=== PATIENT | female | born 1960 | race Two or more races ===

== ENCOUNTER 2025-01-24 11:30 | Inpatient (IN) | payer OTHER ==
[~2025-01-24] VITALS: Ht 172.7 cm; Wt 80.7 kg
[2025-01-24] MEDS ORDERED: ESTAZOLAM2 MG PO (12:34)
[2025-01-24] MEDS ORDERED: CLONAZEPAM2 M1 PO (12:34)
[2025-01-24] MEDS ORDERED: PROTONIX40 MG PO (12:35)
[2025-01-24] MEDS ORDERED: BELBUCA150 MCG BC (12:35)
[2025-01-24] MEDS ORDERED: ZOLOFT100 MG PO (12:35)
[2025-01-24] MEDS ORDERED: IBANDRONATE SO150 MG PO (12:36)
[2025-01-31] MEDS ORDERED: METRONIDAZOLE/SODIUM CHLORIDE 500 MG/100 ML PIGGYBACK IV ONE (12:08)
[2025-01-31] MEDS ORDERED: CEFTRIAXONE SODIUM 2,000 MG VIAL ONE (12:08)
[2025-01-31] MEDS ORDERED: BUPIVACAINE HCL/MPF 0.5% 30ML VIAL ONE (13:36)
[2025-01-31] MEDS ORDERED: CHLORHEXIDINE GLUCONATE 120 ML BOTTLE TOP ONE (14:29)
[2025-01-31] MEDS ORDERED: LIDOCAINE HCL 1%/EPINEPHRINE 20ML VIAL IJ ONE (14:37)
[2025-01-31] MEDS ORDERED: SUGAMMADEX SODIUM 200 MG/2 ML VIAL IV ONE (17:07)
[2025-01-31] MEDS ORDERED: RINGERS SOLUTION,LACTATED 1,000 ML IV SCH (17:45)
[2025-01-31] MEDS ORDERED: ONDANSETRON HCL 2 MG/ML VIAL IV PRN (17:45)
[2025-01-31] MEDS ORDERED: MORPHINE SULFATE 4 MG/ML CARTRIDGE IV PRN (17:45)
[2025-01-31] MEDS ORDERED: MORPHINE SULFATE 4 MG/ML VIAL IV ONE ×2 (20:25→21:00)
[2025-01-31] MEDS ORDERED: FAMOTIDINE/PF 20 MG/2 ML VIAL IV PUSH SCH (21:00)
[2025-01-31] MEDS ORDERED: FAMOTIDINE/PF 20 MG/2 ML VIAL ONE (21:04)
[2025-01-31 21:53] VITALS: BP 117/72; O2SAT 95
[2025-01-31 23:21] LABS: HEMATOCRIT 41.2 % (36.0-45.00); HEMOGLOBIN 13.5 g/dL (12.0-15.00); MEAN CELL VOLUME 83.7 fL (80.00-100.00); MEAN CORPUSCULAR HEMOGLOBIN 27.4 pg (27.00-32.0); MEAN CORPUSCULAR HGB CONC 32.7 g/dl (32.0-36.0); PLATELET COUNT 357 K/uL (150-450); RED BLOOD COUNT 4.93 M/uL (4.00-6.00); RED CELL DISTRIBUTION WIDTH 15.4 % (11.5-14.5)
[2025-02-01 00:49] VITALS: BP 118/80; O2SAT 95
[2025-02-01] MEDS ORDERED: METOCLOPRAMIDE HCL 5 MG/ML VIAL IV SCH (01:00)
[2025-02-01 07:17] LABS: ALBUMIN 2.6 gm/dL (3.4-5.0); CALCIUM 8.1 mg/dL (8.5-10.1); CREATININE SERUM 0.64 mg/dL (0.55-1.02); GFR 93.42; PHOSPHOROUS 3.3 mg/dL (2.5-4.9)
[2025-02-01 07:23] LABS: MAGNESIUM 1.4 mg/dL (1.8-2.4); POTASSIUM 4.98 mEq/L (3.5-5.1)
[2025-02-01 08:34] LABS: HEMATOCRIT 40.4 % (36.0-45.00); MEAN CORPUSCULAR HEMOGLOBIN 27.3 pg (27.00-32.0); MEAN CORPUSCULAR HGB CONC 32.2 g/dl (32.0-36.0); PLATELET COUNT 326 K/uL (150-450); RED BLOOD COUNT 4.75 M/uL (4.00-6.00); RED CELL DISTRIBUTION WIDTH 15.2 % (11.5-14.5)
[2025-02-01 08:58] VITALS: BP 126/80; O2SAT 94; O2SAT 95
[2025-02-01] MEDS ORDERED: BUPROPION HCL 150 MG TABLET.SA PO SCH (09:00)
[2025-02-01] MEDS ORDERED: SERTRALINE HCL 100 MG TABLET PO SCH (09:00)
[2025-02-01] MEDS ORDERED: MAGNESIUM SULFATE IN WATER 50 ML IV NR (10:00)
[2025-02-01] MEDS ORDERED: PIPERACILLIN/TAZOBACTAM SODIUM 3.375 GM in 0.9 % SODIUM CHLORIDE 100 ML IV NR (10:00)
[2025-02-01] MEDS ORDERED: PIPERACILLIN/TAZOBACTAM SODIUM 3.375 GM in 0.9 % SODIUM CHLORIDE 100 ML IV SCH (14:00)
[2025-02-01 16:11] VITALS: BP 122/78; O2SAT 93
[2025-02-01] MEDS ORDERED: AMINO ACIDS 4.25 %/DEXTROSE 5% 1,000 ML PERIFERAL SCH (17:00)
[2025-02-01] MEDS ORDERED: AA 5 % NO.6/DEXTROSE 15 % 2,000 ML CENTRAL SCH (17:00)
[2025-02-01] MEDS ORDERED: ENOXAPARIN SODIUM 40 MG/0.4 ML SYRINGE SUBCUTANEO SCH (17:00)
[2025-02-01] MEDS ORDERED: CLONAZEPAM 1 MG TABLET PO SCH (21:00)
[2025-02-01] MEDS ORDERED: ESTAZOLAM 2 MG PO SCH (21:00)
[2025-02-02] VITALS: BP 123/74; O2SAT 97
[2025-02-02 07:52] LABS: CREATININE SERUM 0.53 mg/dL (0.55-1.02); GFR 116.14; MAGNESIUM 2.1 mg/dL (1.8-2.4); POTASSIUM 3.85 mEq/L (3.5-5.1)
[2025-02-02 08:00] VITALS: BP 126/79; O2SAT 98
[2025-02-02 08:00] LABS: PHOSPHOROUS 1.5 mg/dL (2.5-4.9)
[2025-02-02] MEDS ORDERED: ENOXAPARIN SODIUM 40 MG/0.4 ML SYRINGE SUBCUTANEO SCH (09:00)
[2025-02-02] MEDS ORDERED: POTASSIUM PHOS,M-BASIC-D-BASIC 15 MM in 0.9 % SODIUM CHLORIDE 250 ML IV NR (10:00)
[2025-02-02] MEDS ORDERED: ORPHENADRINE CITRATE 30 MG/ML AMPUL IM STA (10:32)
[2025-02-02 15:22] LABS: HEMATOCRIT 34.9 % (36.0-45.00); HEMOGLOBIN 11.2 g/dL (12.0-15.00); MEAN CELL VOLUME 85.3 fL (80.00-100.00); MEAN CORPUSCULAR HEMOGLOBIN 27.4 pg (27.00-32.0); MEAN CORPUSCULAR HGB CONC 32.2 g/dl (32.0-36.0); PLATELET COUNT 246 K/uL (150-450); RED BLOOD COUNT 4.09 M/uL (4.00-6.00); RED CELL DISTRIBUTION WIDTH 15.5 % (11.5-14.5)
[2025-02-02 15:23] VITALS: BP 123/65; O2SAT 98
[2025-02-02] MEDS ORDERED: ORPHENADRINE CITRATE 30 MG/ML AMPUL IM SCH (21:00)
[2025-02-02 23:16] VITALS: BP 139/81; O2SAT 98
[2025-02-03 07:25] VITALS: BP 131/79; O2SAT 98
[2025-02-03 15:30] VITALS: BP 114/74; O2SAT 95
[2025-02-03 23:57] VITALS: BP 139/84; O2SAT 97
[2025-02-04 08:08] VITALS: BP 108/68; O2SAT 95
[2025-02-04 08:21] LABS: ALBUMIN 2.1 gm/dL (3.4-5.0); CALCIUM 8.2 mg/dL (8.5-10.1); CREATININE SERUM 0.44 mg/dL (0.55-1.02); GFR 143.96; MAGNESIUM 1.6 mg/dL (1.8-2.4); POTASSIUM 3.61 mEq/L (3.5-5.1)
[2025-02-04 08:22] LABS: HEMATOCRIT 29.1 % (36.0-45.00); HEMOGLOBIN 9.4 g/dL (12.0-15.00); MEAN CORPUSCULAR HEMOGLOBIN 27.4 pg (27.00-32.0); MEAN CORPUSCULAR HGB CONC 32.2 g/dl (32.0-36.0); PLATELET COUNT 235 K/uL (150-450); RED BLOOD COUNT 3.42 M/uL (4.00-6.00); RED CELL DISTRIBUTION WIDTH 15.2 % (11.5-14.5)
[2025-02-04 08:50] LABS: PHOSPHOROUS 1.5 mg/dL (2.5-4.9)
[2025-02-04 16:00] VITALS: BP 132/79; O2SAT 95
[2025-02-04] MEDS ORDERED: MAGNESIUM SULFATE IN WATER 4 GM/100 ML PIGGYBACK IV NR (16:00)
[2025-02-04] MEDS ORDERED: POTASSIUM PHOS,M-BASIC-D-BASIC 3 MM/ML VIAL IV ONE (18:00)
[2025-02-05 00:29] VITALS: BP 127/80; O2SAT 100
[2025-02-05 06:52] LABS: INR 1.01
[2025-02-05 06:53] LABS: HEMATOCRIT 30.7 % (36.0-45.00); HEMOGLOBIN 10.2 g/dL (12.0-15.00); MEAN CELL VOLUME 83.6 fL (80.00-100.00); MEAN CORPUSCULAR HEMOGLOBIN 27.7 pg (27.00-32.0); MEAN CORPUSCULAR HGB CONC 33.1 g/dl (32.0-36.0); PLATELET COUNT 266 K/uL (150-450); RED BLOOD COUNT 3.68 M/uL (4.00-6.00)
[2025-02-05 07:44] LABS: ALBUMIN 2.2 gm/dL (3.4-5.0); BILIRUBIN TOTAL 0.75 mg/dL (0.3-1.2); CALCIUM 8.2 mg/dL (8.5-10.1); CHOL HDL RATIO 4.7 (0-5.0); CREATININE SERUM 0.39 mg/dL (0.55-1.02); GFR 165.46; GLOBULINA 3.7 G/DL (2.4-3.5); POTASSIUM 3.49 mEq/L (3.5-5.1); TOTAL PROTEIN 5.9 gm/dL (6.4-8.2)
[2025-02-05 08:00] VITALS: BP 119/76; O2SAT 93
[2025-02-05] MEDS ORDERED: POTASSIUM CHLORIDE 20MEQ/100ML H2O PB IV NR (08:15)
[2025-02-05] MEDS ORDERED: VITAMIN B COMPLEX 1 EACH PO SCH (09:00)
[2025-02-05] MEDS ORDERED: SOD FERRIC GLUC COMPLX/SUCROSE 62.5 MG/5 ML AMPUL IV SCH (09:00)
[2025-02-05] MEDS ORDERED: Cyanocobalamin/Mecobalamin 1 TAB.SL SL SCH (09:00)
[2025-02-05 16:44] VITALS: BP 148/81; O2SAT 95
[2025-02-06 00:53] VITALS: BP 114/72; O2SAT 95
[2025-02-06 06:39] LABS: UREA CLEARANCE 40.9 ML/MIN
[2025-02-06 08:00] VITALS: BP 115/76; O2SAT 95
[2025-02-06] MEDS ORDERED: LACTOBACILLUS ACIDOPHILUS 1 CAP CAP PO SCH (12:06)
[2025-02-06] MEDS ORDERED: HYDROCORTISONE TOP SCH (13:00)
[2025-02-06] MEDS ORDERED: HYDROCORTISONE 2.5% 30 GM TUBE RECTAL SCH (13:00)
[2025-02-06] MEDS ORDERED: PRAMOXINE TOP SCH (13:00)
[2025-02-06 15:00] VITALS: BP 123/76; O2SAT 92
[2025-02-07 00:01] VITALS: BP 112/71; O2SAT 98
[2025-02-07 06:54] LABS: HEMATOCRIT 29.7 % (36.0-45.00); HEMOGLOBIN 9.8 g/dL (12.0-15.00); MEAN CELL VOLUME 84.6 fL (80.00-100.00); MEAN CORPUSCULAR HEMOGLOBIN 27.9 pg (27.00-32.0); PLATELET COUNT 329 K/uL (150-450); RED BLOOD COUNT 3.51 M/uL (4.00-6.00)
[2025-02-07 07:03] LABS: CALCIUM 8.5 mg/dL (8.5-10.1); CREATININE SERUM 0.44 mg/dL (0.55-1.02); GFR 143.96; PHOSPHOROUS 3.2 mg/dL (2.5-4.9); POTASSIUM 3.28 mEq/L (3.5-5.1)
[2025-02-07 08:00] VITALS: BP 115/76; O2SAT 95
[2025-02-07] MEDS ORDERED: POTASSIUM CHLORIDE 20MEQ/100ML H2O PB IV NR (10:00)
[2025-02-07 17:14] VITALS: BP 126/73; O2SAT 97
[2025-02-07 23:53] VITALS: BP 114/71; O2SAT 95
[2025-02-08 07:47] VITALS: BP 123/74; O2SAT 97
[2025-02-08 16:02] VITALS: BP 129/82; O2SAT 96
== END 2025-02-08 20:23 | disposition home or self-care (01) | DRG 330 ==
LOC: SURH 01-31 07:00 → SURG 01-31 10:08 → O/R 01-31 10:08 → SURH 01-31 11:30 → SURG 01-31 18:50
PROVIDERS: Internal Medicine Geriatric Medicine; Surgery; ADMIT Colon & Rectal Surgery; ATTEND Colon & Rectal Surgery
PROC: 0DTP0ZZ Resection of Rectum, Open Approach (ICD-10-PCS; 2025-01-31)
PROC: 0DT80ZZ Resection of Small Intestine, Open Approach (ICD-10-PCS; 2025-01-31)
PROC: 0DJD4ZZ Inspection of Lower Intestinal Tract, Percutaneous Endoscopic Approach (ICD-10-PCS; 2025-01-31)
PROC: 0WQF0ZZ Repair Abdominal Wall, Open Approach (ICD-10-PCS; 2025-01-31)
PROC: 0DQ80ZZ Repair Small Intestine, Open Approach (ICD-10-PCS; principal; 2025-01-31 07:00)
PROC: 02HV33Z Insertion of Infusion Device into Superior Vena Cava, Percutaneous Approach (ICD-10-PCS; 2025-02-01)
DX: Z43.3 Encounter for attention to colostomy (principal); D62 Acute posthemorrhagic anemia; K57.32 Diverticulitis of large intestine without perforation or abscess without bleeding; K63.2 Fistula of intestine; K91.71 Accidental puncture and laceration of a digestive system organ or structure during a digestive system procedure; Z53.31 Laparoscopic surgical procedure converted to open procedure; K43.2 Incisional hernia without obstruction or gangrene

== ENCOUNTER 2025-02-26 13:19 | Inpatient (IN) | payer OTHER ==
[~2025-02-26] VITALS: Ht 172.7 cm; Wt 80.7 kg
[~2025-02-26 13:19] MED LIST: BELBUCA150 MCG BC; CLONAZEPAM2 M1 PO; ESTAZOLAM2 MG PO; IBANDRONATE SO150 MG PO; PROTONIX40 MG PO; ZOLOFT100 MG PO
[2025-02-26] MEDS ORDERED: NABUMETONE750 MG (14:12)
[2025-02-26] MEDS ORDERED: INTESTINEX680 M1 (14:14)
[2025-02-26] MEDS ORDERED: BUPROPION XL450 MG (14:15)
[2025-02-26] MEDS ORDERED: CELECOXIB200 MG (14:16)
[2025-02-26] MEDS ORDERED: ESTAZOLAM2 MG (14:16)
[2025-02-26] MEDS ORDERED: ZOFRAN8 MG (14:18)
[2025-02-26] MEDS ORDERED: CLONAZEPAM2 M1 (14:19)
[2025-02-26] MEDS ORDERED: PANTOPRAZOLE SO40 MG (14:20)
[2025-02-26] MEDS ORDERED: LEVSIN0.125 MG (14:21)
[2025-02-26] MEDS ORDERED: CANASA1000 MG (14:21)
[2025-02-26] MEDS ORDERED: 0.9 % SODIUM CHLORIDE 500 ML IV ONE (16:00)
[2025-02-26] MEDS ORDERED: DIATRIZOATE MEGLUMINE, SODIUM 30 ML BOTTLE ONE (16:04)
[2025-02-26 16:24] LABS: ERYTHROCYTE SEDIMENTATION RATE 68 mm/hr
[2025-02-26 16:41] LABS: HEMATOCRIT 38.9 % (36.0-45.00); HEMOGLOBIN 12.4 g/dL (12.0-15.00); MEAN CELL VOLUME 84.6 fL (80.00-100.00); MEAN CORPUSCULAR HEMOGLOBIN 27.1 pg (27.00-32.0); PLATELET COUNT 330 K/uL (150-450); RED BLOOD COUNT 4.59 M/uL (4.00-6.00); RED CELL DISTRIBUTION WIDTH 15.6 % (11.5-14.5)
[2025-02-26 16:50] LABS: INR 1.06; PARTIAL THROMBOPLASTIN TIME 27.1 SECONDS (22.0-34.0); PROTHROMBIN TIME 11.5 SECONDS (9.0-11.5)
[2025-02-26 16:55] LABS: ALBUMIN 3.6 gm/dL (3.4-5.0); BILIRUBIN TOTAL 0.75 mg/dL (0.3-1.2); CALCIUM 10.1 mg/dL (8.5-10.1); CREATININE SERUM 0.65 mg/dL (0.55-1.02); GFR 91.76; GLOBULINA 4.7 G/DL (2.4-3.5); POTASSIUM 3.98 mEq/L (3.5-5.1); TOTAL PROTEIN 8.3 gm/dL (6.4-8.2)
[2025-02-26 17:53] LABS: URINE APPEARANCE Clear; URINE BILIRRUBIN Negative (NEGATIVE); URINE BLOOD Negative; URINE COLOR Yellow; URINE GLUCOSE Negative (NEGATIVE); URINE KETONE 15 (NEGATIVE); URINE LEUKOCYTE Trace; URINE NITRATE Negative; URINE PROTEIN 30 (NEGATIVE)
[2025-02-26 17:59] LABS: URINE BACTERIA 46.5 uL (0.0-1933); URINE EPITHELIAL CELLS 16.1 uL (0.0-38.8); URINE RBC 16.6 uL (0.0-20.8); URINE WBC 8.7 uL (0.0-23.2)
[2025-02-26 18:17] LABS: URINE CAST 0.14 uL (0.0-1.40)
[2025-02-26 18:18] LABS: URINE EPITHELIAL CELLS 0-4 /HPF
[2025-02-26] MEDS ORDERED: PIPERACILLIN/TAZOBACTAM SODIUM 3.375 GM VIAL IV ONE ×2 (20:28→20:30)
[2025-02-26] MEDS ORDERED: CEFEPIME HCL 2,000 MG in 0.9 % SODIUM CHLORIDE 100 ML IV SCH (21:27)
[2025-02-26] MEDS ORDERED: VANCOMYCIN HCL 1,000 MG VIAL IV SCH (21:27)
[2025-02-26] MEDS ORDERED: ACETAMINOPHEN 500 MG GEL..CAP PO PRN (21:30)
[2025-02-26] MEDS ORDERED: 0.9 % SODIUM CHLORIDE 1,000 ML IV SCH (21:30)
[2025-02-26] MEDS ORDERED: ONDANSETRON HCL 4 MG in 0.9 % SODIUM CHLORIDE 50 ML IV PRN (21:30)
[2025-02-26] MEDS ORDERED: CEFEPIME HCL 2,000 MG VIAL ONE (21:39)
[2025-02-26] MEDS ORDERED: VANCOMYCIN HCL 1,000 MG VIAL ONE (21:39)
[2025-02-26 23:23] LABS: INR 1.07; PARTIAL THROMBOPLASTIN TIME 29.8 SECONDS (22.0-34.0); PROTHROMBIN TIME 11.6 SECONDS (9.0-11.5)
[2025-02-27 00:23] VITALS: BP 116/77; O2SAT 97
[2025-02-27 02:47] VITALS: BP 126/81; O2SAT 93
[2025-02-27] MEDS ORDERED: VANCOMYCIN HCL 1,000 MG VIAL ONE ×2 (06:42→19:25)
[2025-02-27 08:00] VITALS: BP 139/74; O2SAT 94
[2025-02-27] MEDS ORDERED: FAMOTIDINE/PF 20 MG in 0.9 % SODIUM CHLORIDE 8 ML IV PUSH SCH (09:00)
[2025-02-27] MEDS ORDERED: SERTRALINE HCL 100 MG TABLET PO SCH (09:00)
[2025-02-27] MEDS ORDERED: ENOXAPARIN SODIUM 40 MG/0.4 ML SYRINGE SUBCUTANEO SCH (09:00)
[2025-02-27] MEDS ORDERED: BUPROPION HCL 150 MG TABLET.SA PO SCH (09:00)
[2025-02-27] MEDS ORDERED: FAMOTIDINE/PF 20 MG/2 ML VIAL ONE (09:18)
[2025-02-27] MEDS ORDERED: SILVER SULFADIAZINE 50 GM,ZINC OXIDE 30 GM,NYSTATIN 15 GM TOP SCH (17:00)
[2025-02-27] MEDS ORDERED: CHOLESTYRAMINE/ASPARTAME LIGHT 4 G/PKT PACKET PO SCH (17:00)
[2025-02-27] MEDS ORDERED: LACTOBACILLUS ACIDOPHILUS 1 CAP CAP PO SCH (17:00)
[2025-02-27 17:29] VITALS: BP 137/84; O2SAT 95
[2025-02-27] MEDS ORDERED: SODIUM CL 0.9% 50 ML IV.SOLN IV ONE (20:01)
[2025-02-27] MEDS ORDERED: VANCOMYCIN HCL 1,000 MG VIAL IV SCH (21:00)
[2025-02-27] MEDS ORDERED: CLONAZEPAM 1 MG TABLET PO SCH (21:00)
[2025-02-28 00:26] VITALS: BP 113/72; O2SAT 95
[2025-02-28 06:28] LABS: HEMATOCRIT 32.7 % (36.0-45.00); HEMOGLOBIN 10.9 g/dL (12.0-15.00); MEAN CELL VOLUME 82.4 fL (80.00-100.00); MEAN CORPUSCULAR HEMOGLOBIN 27.6 pg (27.00-32.0); MEAN CORPUSCULAR HGB CONC 33.5 g/dl (32.0-36.0); PLATELET COUNT 242 K/uL (150-450); RED BLOOD COUNT 3.96 M/uL (4.00-6.00); RED CELL DISTRIBUTION WIDTH 15.4 % (11.5-14.5)
[2025-02-28 07:02] LABS: CALCIUM 8.3 mg/dL (8.5-10.1); CREATININE SERUM 0.54 mg/dL (0.55-1.02); GFR 113.66; PHOSPHOROUS 3.3 mg/dL (2.5-4.9)
[2025-02-28] MEDS ORDERED: VANCOMYCIN HCL 1,000 MG VIAL ONE ×2 (07:04→14:21)
[2025-02-28 07:41] LABS: POTASSIUM 2.94 mEq/L (3.5-5.1)
[2025-02-28 07:42] LABS: MAGNESIUM 1.2 mg/dL (1.8-2.4)
[2025-02-28 08:00] VITALS: BP 146/85; O2SAT 95
[2025-02-28] MEDS ORDERED: MAGNESIUM SULFATE IN WATER 50 ML IV NR (09:00)
[2025-02-28] MEDS ORDERED: POTASSIUM CHLORIDE 20MEQ/100ML H2O PB IV NR (11:00)
[2025-02-28 17:00] VITALS: BP 142/85; O2SAT 17
[2025-03-01 00:58] VITALS: BP 116/72; O2SAT 100
[2025-03-01] MEDS ORDERED: VANCOMYCIN HCL 1,000 MG VIAL ONE (07:22)
[2025-03-01 11:16] VITALS: BP 132/91; O2SAT 95
[2025-03-01] MEDS ORDERED: PEPCID AC20 MG PO (11:46)
[2025-03-01] MEDS ORDERED: TRAM1TAB98 PO (11:46)
[2025-03-01] MEDS ORDERED: AMOX1TAB5 PO (11:47)
== END 2025-03-01 14:36 | disposition home or self-care (01) | DRG 871 ==
LOC: ER 13:20 → SURH 21:39
PROVIDERS: Emergency Medicine; Internal Medicine Geriatric Medicine; ADMIT Colon & Rectal Surgery; ATTEND Colon & Rectal Surgery
PROC: BW21ZZZ Computerized Tomography (CT Scan) of Abdomen and Pelvis (ICD-10-PCS; principal; 2025-02-26)
DX: A41.9 Sepsis, unspecified organism (principal); K65.1 Peritoneal abscess; T81.42XA Infection following a procedure, deep incisional surgical site, initial encounter; B96.4 Proteus (mirabilis) (morganii) as the cause of diseases classified elsewhere; B96.83 Acinetobacter baumannii as the cause of diseases classified elsewhere